=== PATIENT | male | born 1950 | race Caucasian/White ===

== ENCOUNTER → 2018-01-16 | Outpatient (CLI) | payer BC, OTHER ==
[~2018-01-16] MED LIST: ATEN100T PO; LISI-170 PO
[2018-01-16 15:01] LABS: BASOPHILS # (AUTO) 0.03 x10^3/uL (0-0.1); BASOPHILS % (AUTO) 1 % (0-1); EOSINOPHILS # (AUTO) 0.15 x10^3/uL (0-0.4); EOSINOPHILS % (AUTO) 3 % (1-7); LYMPHOCYTES # (AUTO) 1.95 x10^3/uL (1-3.4); LYMPHOCYTES % (AUTO) 34 % (22-44); MD NO; MEAN CORPUSCULAR HEMOGLOBIN 32.1 pg (27.5-34.5); MEAN CORPUSCULAR HGB CONC 33.5 g/dL (33.2-36.2); MEAN CORPUSCULAR VOLUME 95.8 fL (81-97); MEAN PLATELET VOLUME 8.6 fL (7.4-10.4); MONOCYTES # (AUTO) 0.93 x10^3/uL (0.2-0.8); MONOCYTES % (AUTO) 16 % (2-9); NEUTROPHILS # (AUTO) 2.64 x10^3/uL (1.8-6.8); NEUTROPHILS % (AUTO) 46 % (42-75); PLATELET COUNT 181 x10^3/uL (130-400); RED BLOOD COUNT 4.24 x10^6/uL (4.38-5.82); RED CELL DISTRIBUTION WIDTH 13.9 % (9.4-14.8)
[2018-01-16 15:07] LABS: ALANINE AMINOTRANSFERASE 89 U/L (12-78); ALBUMIN 3.4 g/dL (3.4-5.0); ANION GAP 5 mmol/L (5-15); CALCIUM 8.5 mg/dL (8.5-10.1); CHLORIDE 105 mmol/L (98-107); CREATININE 1.02 mg/dL (0.7-1.3)
[2018-01-16 15:10] LABS: ALKALINE PHOSPHATASE 65 U/L (45-117); BILIRUBIN,TOTAL 0.3 mg/dL (0.2-1.0); TOTAL PROTEIN 8.4 g/dL (6.4-8.2)
== END | disposition home or self-care (01) ==
LOC: STAR 13:50
PROVIDERS: ATTEND Surgery
DX: Z01.818 Encounter for other preprocedural examination (principal); I65.23 Occlusion and stenosis of bilateral carotid arteries
CPT/HCPCS: 36415; 80053; 85025; 93005

== ENCOUNTER 2018-01-23 07:58 | Inpatient (IN) | payer BC, MEDICARE ==
[~2018-01-23] VITALS: Ht 172.7 cm; Wt 63.8 kg
[~2018-01-23 07:58] MED LIST changes: +BACITRACIN 50,000 UNIT ONE; +HEPARIN 1,000 UNITS/ML, 10ML ONE; +HEPARIN 1,000 UNITS/ML, 30ML ONE; +LIDOCAINE 1%-EPI 1:100K, 20ML ONE; +PAPAVERINE 30 MG/ML, 2ML ONE; +PROTAMINE SULFATE 10 MG/ML, 5ML ONE; +THROMBIN SPRAY 20,000 UNIT SPRAY TP ONE
[2018-01-23] MEDS ORDERED: LACTATED RINGERS 1,000 ML IV SCH (08:24)
[2018-01-23] MEDS ORDERED: FENTANYL PF 250 MCG/5ML ONE (09:18)
[2018-01-23] MEDS ORDERED: LIDOCAINE JELLY 2%, 30GM ONE (09:19)
[2018-01-23] MEDS ORDERED: ONDANSETRON ODT 8 MG PO ONE (09:30)
[2018-01-23] MEDS ORDERED: GABAPENTIN 300 MG CAPSULE PO ONE (09:30)
[2018-01-23] MEDS ORDERED: ACETAMINOPHEN 500 MG TABLET PO ONE (09:30)
[2018-01-23] MEDS ORDERED: EPHEDRINE 50 MG/ML, 1ML ONE (09:36)
[2018-01-23] MEDS ORDERED: LIDOCAINE/PF 1%, 30ML ONE (09:56)
[2018-01-23] MEDS ORDERED: THROMBIN 5,000 UNIT VIAL TP ONE (10:13)
[2018-01-23] MEDS ORDERED: SCOPOLAMINE PATCH, 1.5MG PATCH.TD72 TD PRN (10:30)
[2018-01-23] MEDS ORDERED: HYDROmorphone 1 MG/ML, 1ML IV PRN (10:30)
[2018-01-23] MEDS ORDERED: MEPERIDINE/PF 25MG/0.5ML IVPush PRN (10:30)
[2018-01-23] MEDS ORDERED: hydrALAzine 20 MG/ML, 1ML IV PRN (10:30)
[2018-01-23] MEDS ORDERED: OXYcodone 5 MG/5 ML ORAL.SOL UDC PO PRN (10:30)
[2018-01-23] MEDS ORDERED: MIDAZOLAM 1 MG/ML, 2ML IV PRN (10:30)
[2018-01-23] MEDS ORDERED: LABETALOL 5MG/ML, 20ML IV PRN (10:30)
[2018-01-23] MEDS ORDERED: FENTANYL PF 100 MCG/2ML IV PRN (10:30)
[2018-01-23] MEDS ORDERED: ALBUTEROL/IPRATROPIUM 2.5MG/0.5MG, 3 ML NPPB PRN (10:30)
[2018-01-23] MEDS ORDERED: ONDANSETRON 2MG/ML, 2ML IV PRN ×2 (10:30→14:30)
[2018-01-23] MEDS ORDERED: PROMETHAZINE 25 MG SUPP PR PRN (10:30)
[2018-01-23] MEDS ORDERED: DEXAMETHASONE 4 MG/ML, 1ML ONE (11:00)
[2018-01-23] MEDS ORDERED: GLYCOPYRROLATE 0.2MG/1ML, 5ML ONE (11:00)
[2018-01-23] MEDS ORDERED: PROPOFOL 10 MG/ML, 20ML ONE (11:00)
[2018-01-23] MEDS ORDERED: LIDOCAINE-MPF 2% ,5ML ONE ×2 (11:00)
[2018-01-23] MEDS ORDERED: CEFAZOLIN 1,000 MG ONE (11:00)
[2018-01-23] MEDS ORDERED: SUCCINYLCHOLINE 20 MG/ML, 10ML ONE (11:00)
[2018-01-23] MEDS ORDERED: ROCURONIUM 10MG/ML,5ML ONE (11:00)
[2018-01-23] MEDS ORDERED: NEOSTIGMINE 1 MG/ML, 10ML ONE (11:00)
[2018-01-23] MEDS ORDERED: OXYcodone 5 MG/5 ML ORAL.SOL UDC ONE (11:27)
[2018-01-23] MEDS ORDERED: FENTANYL PF 100 MCG/2ML ONE (11:27)
[2018-01-23] MEDS ORDERED: hydrALAzine 20 MG/ML, 1ML ONE (11:35)
[2018-01-23 14:00] VITALS: BP 127/86
[2018-01-23] MEDS ORDERED: morphine SULFATE 10 MG/ML, 1ML IV PRN (14:30)
[2018-01-23] MEDS ORDERED: HYDROcodone/APAP 5/325 TABLET PO PRN (14:30)
[2018-01-23] MEDS: POTASSIUM CHLORIDE 20 MEQ in D5%-0.45% NACL 1,000 ML IV SCH (17:14)
[2018-01-23] MEDS: CEFAZOLIN PMX 1GM/50ML 50 ML IVPB SCH (17:14)
[2018-01-23 20:13] VITALS: BP 121/86
[2018-01-23 23:38] VITALS: BP 111/76
[2018-01-24] MEDS: POTASSIUM CHLORIDE 20 MEQ in D5%-0.45% NACL 1,000 ML IV SCH ×2 (00:36→05:38)
[2018-01-24] MEDS: CEFAZOLIN PMX 1GM/50ML 50 ML IVPB SCH (03:05)
[2018-01-24] MEDS: SODIUM CHLORIDE FLUSH 10ML SYR IVF SCH ×2 (03:06→08:57)
[2018-01-24] MEDS ORDERED: ENOXAPARIN 40 MG/0.4 ML SQ SCH (06:00)
[2018-01-24 07:40] VITALS: BP 151/84
[2018-01-24] MEDS ORDERED: HYDR-3240 PO (08:55)
[2018-01-24] MEDS ORDERED: LISINOPRIL 20 MG TABLET PO SCH (09:00)
[2018-01-24] MEDS ORDERED: ATENOLOL 100 MG TABLET PO SCH (09:00)
[2018-01-24 10:30] VITALS: BP 120/81
== END 2018-01-24 11:08 | disposition home or self-care (01) | DRG 39 ==
LOC: ORIP 07:58 → 4NOR 13:55 → DCLOUNGE 01-24 11:00
PROVIDERS: ADMIT Surgery; ATTEND Surgery
PROC: 03CN0ZZ Extirpation of Matter from Left External Carotid Artery, Open Approach (ICD-10-PCS; 2018-01-23)
PROC: 03CL0ZZ Extirpation of Matter from Left Internal Carotid Artery, Open Approach (ICD-10-PCS; 2018-01-23)
PROC: 03CJ0ZZ Extirpation of Matter from Left Common Carotid Artery, Open Approach (ICD-10-PCS; principal; 2018-01-23 10:00)
DX: I65.23 Occlusion and stenosis of bilateral carotid arteries (principal); I10 Essential (primary) hypertension; J44.9 Chronic obstructive pulmonary disease, unspecified; B19.20 Unspecified viral hepatitis C without hepatic coma; F41.9 Anxiety disorder, unspecified; J38.00 Paralysis of vocal cords and larynx, unspecified; J31.2 Chronic pharyngitis; Z86.73 Personal history of transient ischemic attack (TIA), and cerebral infarction without residual deficits; Z92.21 Personal history of antineoplastic chemotherapy; Z92.3 Personal history of irradiation; Z85.89 Personal history of malignant neoplasm of other organs and systems; Z85.21 Personal history of malignant neoplasm of larynx; Z90.49 Acquired absence of other specified parts of digestive tract; Z87.891 Personal history of nicotine dependence; Z87.442 Personal history of urinary calculi; Z82.49 Family history of ischemic heart disease and other diseases of the circulatory system; Z23 Encounter for immunization
CPT/HCPCS: 36415; J3490; 86850; 86900; 90656; C1729; G0378; J0690; J1100; J1644; J1650; J2704; J2710; J2720; J3010; J3480; Q0162; J0330; J2440; J7120